=== PATIENT | female | born 1965 | race Caucasian/White ===

== ENCOUNTER 2020-06-24 07:49 | Emergency (ER) | payer OTHER ==
[~2020-06-24 07:49] MED LIST: COLACE100 MG PO; COZAAR50 MG PO; CYCLOBENZAPRINE10 MG PO; DITROPAN5 MG PO; KETOPROFEN75 MG PO; LEVAQUIN500 MG PO; NEURONTIN300 MG PO; NORCO 5-325 TA1 EACH PO; NORVASC5 MG PO; ONMEL200 MG PO
[2020-06-24] MEDS ORDERED: MEDROL 4MG DOSEP4 MG PO (08:37)
== END 2020-06-24 09:10 | disposition home or self-care (01) ==
LOC: FER 07:49
DX: M54.12 Radiculopathy, cervical region (principal); F17.210 Nicotine dependence, cigarettes, uncomplicated

== ENCOUNTER 2021-05-03 07:46 | Emergency (ER) | payer OTHER ==
[~2021-05-03 07:46] MED LIST changes: +MEDROL 4MG DOSEP4 MG PO
== END 2021-05-03 11:02 | disposition home or self-care (01) ==
LOC: FER 07:46
DX: M25.461 Effusion, right knee (principal)
CPT/HCPCS: 73564; J1885

== ENCOUNTER 2021-10-04 03:26 | Emergency (ER) | payer OTHER ==
[2021-10-04] MEDS ORDERED: MOBIC7.5 MG PO (04:21)
[2021-10-04] MEDS ORDERED: CYCLOBENZAPRINE10 MG PO (04:21)
[2021-10-04] MEDS ORDERED: NORCO 5-325 TA1 EACH PO (05:01)
[2021-10-04] MEDS ORDERED: PERCOCET 5-3251 EACH PO (05:02)
== END 2021-10-04 05:33 | disposition home or self-care (01) ==
LOC: FER 03:26
DX: M25.512 Pain in left shoulder (principal); J44.9 Chronic obstructive pulmonary disease, unspecified; F17.210 Nicotine dependence, cigarettes, uncomplicated
CPT/HCPCS: 73030; J1885